=== PATIENT | male | born 1995 | race Hispanic/Latino ===

== ENCOUNTER 2019-10-04 00:16 | Emergency (ER) | payer SELFPAY ==
[~2019-10-04] VITALS: Ht 165.1 cm; Wt 74.8 kg
--- NOTE | 2019-10-04 01:48 | Diagnostic Imaging Report ---
EXAMINATION: CXR 2 VIEW - HOPD INDICATION: Chest pain. COMPARISON: None FINDINGS: TUBES and LINES: None. LUNGS: Lungs are well inflated. There is no evidence of pneumonia or pulmonary edema. PLEURA: No pleural effusion or pneumothorax. HEART AND MEDIASTINUM: The cardiomediastinal silhouette is unremarkable. BONES AND SOFT TISSUES: No acute osseous abnormality. UPPER ABDOMEN: No free air under the diaphragm. IMPRESSION: No acute radiographic abnormality. Signed by: Dr. Reyna Vo MD on 10/04/2019 1:44 AM
[2019-10-04] MEDS ORDERED: IBUPROFEN 600 MG TAB PO STA (02:01)
[2019-10-04] MEDS ORDERED: IBUPROFEN 200 MG TAB ONE (02:55)
[2019-10-04 06:41] VITALS: BP 111/61
== END 2019-10-04 03:00 | disposition home or self-care (01) ==
LOC: FSED 00:16
DX: R07.89 Other chest pain (principal); M75.92 Shoulder lesion, unspecified, left shoulder
CPT/HCPCS: 71046; 93005; 99282